=== PATIENT | female | born 1965 | race Caucasian/White ===

== ENCOUNTER 2017-09-10 11:19 | Day surgery (SDC) | payer BC ==
[~2017-09-10 11:19] MED LIST: ACETAMINOPHEN 1,000 MG/100 ML BTL IV ONE
[2017-09-10] MEDS ORDERED: BUPIVACAINE 0.75% W/EPI MPF 30ML VIAL IVP ONE (11:20)
[2017-09-10] MEDS ORDERED: LIDOCAINE 2% MDV (20MG/ML) 20ML VIAL IV ONE (11:20)
[2017-09-10] MEDS ORDERED: KETOROLAC 30 MG/ML VIAL IVP ONE (11:20)
[2017-09-10] MEDS ORDERED: SEVOFLURANE 250 ML INH ONE (11:20)
[2017-09-10] MEDS ORDERED: MIDAZOLAM HCL 2MG/2ML VIAL IV ONE (11:20)
[2017-09-10] MEDS ORDERED: FENTANYL PF 100MCG/2ML VIAL IV ONE (11:20)
[2017-09-10] MEDS ORDERED: PROPOFOL 10 MG/ML VIAL IV ONE (11:20)
--- NOTE | 2017-09-11 13:00 | Operative Note ---
DATE OF SURGERY: 09/10/2017 PREOPERATIVE DIAGNOSIS: Torn medial meniscus of the right knee. POSTOPERATIVE DIAGNOSES: 1. Torn lateral meniscus, right knee. 2. Chondromalacia of the patella, right knee. OPERATIVE PROCEDURES: 1. Arthroscopic partial lateral meniscectomy, right knee. 2. Arthroscopic chondroplasty of patella, right knee. DESCRIPTION: This 52-year-old female was taken to the operating room and placed in the supine position on the operating room table. A general anesthetic was administered. The right lower extremity was elevated. It was exsanguinated and the tourniquet inflated to 300 mmHg. Arthroscopic knee rivers applied. Right knee prepped with Hibiclens and draped in the usual sterile fashion. Inferolateral and inferomedial portals were established for the 4 mm arthroscope and working portal, respectively. Initial evaluation of the joint demonstrated grade 3 chondromalacia of the patella with deep cracks and fissures especially in the median ridge of the patella, but the trochlea was spared. Probing confirmed these findings and chondroplasty of the patella was performed to restore stability to the articular cartilage there. The medial compartment was entered, and probing of the medial meniscus and medial femoral condyle did not reveal any pathology. The intracondylar notch was examined and found to be normal. The lateral compartment was entered and a complex tear of the anterior horn was present with horizontal cleavage component as well as small flap component present from approximately the anterior horn attachment to about the 9 o'clock position. From the 9 o'clock position around to about the 1 o'clock position, there was evidence of another tear, undersurface tear, near the root. This was frayed and flipped up and it was cut with the basket forceps. Rotating shaver was used to smooth and contour this cut surface. The articular cartilage, however, appeared normal. The entire anterior horn of the lateral meniscus was completely shredded and destroyed, and this was removed with the rotating shaver. At the about the 9 o'clock position, a smoothed tapered surface was formed to form a confluence with the meniscus that was still remaining and healthy. The popliteal hiatus was not violated. The joint was then copiously irrigated and suctioned. The instruments were removed. The portals were sewn with 4-0 nylon sutures. The portals were infiltrated with 0.75% Marcaine with epinephrine. Sterile dressings applied and the patient taken to the recovery room in satisfactory condition. GROSS PATHOLOGY: Complex tear of the lateral meniscus was present as described above, as well as grade 3 chondromalacia of the patella. CC: DO PRABHAKAR Miner
== END 2017-09-10 14:25 | disposition home or self-care (01) ==
LOC: SUR 11:19
PROVIDERS: ATTEND Orthopaedic Surgery
DX: M23.211 Derangement of anterior horn of medial meniscus due to old tear or injury, right knee (principal); M94.261 Chondromalacia, right knee; E03.9 Hypothyroidism, unspecified; M06.9 Rheumatoid arthritis, unspecified; F41.8 Other specified anxiety disorders
CPT/HCPCS: 81025; J1885; J3490